=== PATIENT | female | born 1935 | race Caucasian/White ===

== ENCOUNTER 2020-12-29 10:53 | Inpatient (IN) | payer OTHER ==
[~2020-12-29] VITALS: Ht 149.9 cm; Wt 76.3 kg
--- NOTE | ~2020-12-29 | EEG ---
[address] [address] EEG STUDY REPORT Name: MITZY BRADLEY Room: [address] IN .R.#: [id number] Admission: 12/29/20 Attend Phys: Ankit Upton MD Discharge: Date of : 39 Report #: [id number] THIS REPORT FOR: cc: Mono Phillips MD, Todd A. MD Khosla,Gregg Cruz MD ~ DATE OF SERVICE: 12/31/2020 This patient is being evaluated for episode of syncope. EEG was done by placing the electrode by standard 10-20 system of electrode placement. Both referential and sequential montages were used for recording. Background activity in this patient's EEG is about 7-8 Hz and 30 microvolt. This patient became drowsy that is associated with bilateral slowing and vertex sharp waves. Photic stimulation is unremarkable. Throughout the record, no active epileptiform activity was noticed. IMPRESSION: This patient's EEG is poorly formed. That is a nonspecific abnormality, which can occur with dementia, encephalopathy, effect of psychotropic medication, etc. Clinical correlation is recommended. By: 1655 1707Gregg Medina MD /nt
--- NOTE | ~2020-12-29 | CON ---
[address] [address] CONSULTATION Name: MITZY BRADLEY Karmen Room: [address] IN .R.#: [id number] Admission: 12/29/20 Attend Phys: Ankit Upton MD Discharge: Date of : 39 Report #: [id number] THIS REPORT FOR: cc: Mono Phillips MD, Todd A. MD Khosla,Gregg Cruz MD ~ DATE OF CONSULTATION: 12/30/2020 HISTORY OF PRESENT ILLNESS: An 85-year-old female patient who was seen by me for an episode of syncope. She came with an episode of syncope, but appeared to be doing better. She is in assisted living for some time now. She used to live with her . When a few years ago, she lived independently, but her short-term memory was becoming poor and she is in assisted living now. She is better than she was yesterday. REVIEW OF SYSTEMS: Indicate that she does have a diagnosis of dementia, but she can still tell me the month and what hospital she is in. She has no overactive bladder, hypertension, history of depression. She was diagnosed to be in atrial fibrillation with rapid heart rate that is being addressed by Cardiology. That was a relevant 14-point review of systems. PAST MEDICAL HISTORY: Negative for any known atrial fibrillation or any stroke. FAMILY HISTORY: Unremarkable. SOCIAL HISTORY: She lives in assisted living. Niece says that she is the closest relative. PHYSICAL EXAMINATION: The patient's examination indicate she is alert. She can tell me that this is December. She could not tell me what date it is. She knew the hospital. She could not name the president. Speech looks intact. Cranial nerve examination II-XII was mostly unremarkable. She moves all 4 extremities symmetrically. Tone is symmetrical. Position sense is normal. Reflexes are somewhat diminished. She was hypertensive when she came in. There is no meningeal sign in this patient. There is no carotid bruit. There is no thyroid mass. She is obese. Her hearing and vision looks adequate. She does appear to be somewhat short of breath. She has atrial fibrillation. Pulses are difficult to feel. No edema, cyanosis or jaundice. VITAL SIGNS: Blood pressure is 123/64, respirations 17, pulse is 83, temperature is 98. LABORATORY DATA: White count is 13.6. IMPRESSION: I suspect the patient's symptoms were because of atrial fibrillation. I ordered the MRI to see if it showed any stroke. Atrial fibrillation and the question of antico[place] [address] CONSULTATION Name: ALEXUS BRADLEYVAUGHN Peraza Room: [address] IN [facility]#: [id number] Admission: 12/29/20 Attend Phys: Ankit Upton MD Discharge: Date of : 39 Report #: [id number] Cardiology and I will defer it to them. I will also get an EEG done, but main management is going to be by Cardiology. If it shows any abnormality on the workup, which I ordered, then I can address that. All of it was discussed with the patient and the niece who is her closest relative and they are agreeable with that. Thank you very much for this referral. By: 1416 1433Pnataliia Medina MD /nt
[2020-12-29 10:56] VITALS: BP 100/53
[2020-12-29] MEDS ORDERED: ASA81BEC PO (10:59)
[2020-12-29] MEDS ORDERED: BUMETANIDE0.5 MG PO (10:59)
[2020-12-29] MEDS ORDERED: VASOTEC20 MG PO (11:00)
[2020-12-29] MEDS ORDERED: ARICEPT10 M1 PO (11:00)
[2020-12-29] MEDS ORDERED: DITROPAN XL5 M1 PO (11:00)
[2020-12-29] MEDS ORDERED: CELEXA 10 MG TA10 M1 PO (11:00)
[2020-12-29] MEDS ORDERED: TRANDATE 200 M200 M1 PO (11:01)
[2020-12-29] MEDS ORDERED: OMEPRAZOLE 20 M20 M1 PO (11:01)
[2020-12-29] MEDS ORDERED: QUESTRAN PACKET4 GM PO (11:01)
[2020-12-29] MEDS ORDERED: NAMENDA 10 MG T10 MG PO (11:01)
[2020-12-29] MEDS ORDERED: TRAZODONE HCL50 MG PO (11:02)
[2020-12-29 11:17] LABS: ABSOLUTE EOSINOPHILS 0.9 thou/uL (0.0-0.7); ABSOLUTE LYMPHOCYTES 0.9 thou/uL (0.8-5.3); ABSOLUTE MONOCYTES 0.9 thou/uL (0.0-1.2); ABSOLUTE NEUTROPHILS 14.2 thou/uL (1.6-8.1); BASOPHILS 0.2 %; EOSINOPHILS 5.3 %; HEMATOCRIT 40.5 % (37.0-47.0); HEMOGLOBIN 12.9 gm/dL (12.0-15.0); LYMPHOCYTES 5.3 %; MCH 27.9 pg (26.0-34.0); MCHC 31.9 g/dL (28.0-37.0); MCV 87.5 fL (80.0-100.0); MONOCYTES 5.3 %; MPV 7.2 fl. (7.2-11.1); NUCLEATED RBCS 0 /100WBC; PLATELET COUNT* 295 thou/uL (150-400); POLYS 83.9 %; RBC 4.62 mil/uL (4.20-5.00); RDW-CV 15.5 % (10.5-14.5); WBC 16.9 thou/uL (4.0-11.0)
[2020-12-29 11:27] LABS: CALCIUM 8.4 mg/dL (8.5-10.1); CREATININE 1.5 mg/dL (0.6-1.3); POTASSIUM 3.9 mmol/L (3.5-5.1)
[2020-12-29 11:31] LABS: ALBUMIN 2.7 g/dL (3.4-5.0); TOTAL BILIRUBIN 0.5 mg/dL (<0.1-1.0); TOTAL PROTEIN 5.9 g/dL (6.4-8.2)
[2020-12-29 14:11] LABS: URINE BILIRUBIN NEGATIVE (Negative); URINE BLOOD NEGATIVE (Negative); URINE CLARITY CLEAR; URINE COLOR YELLOW; URINE GLUCOSE-RANDOM NEGATIVE (Negative); URINE KETONES NEGATIVE (Negative); URINE LEUKOCYTES-REFLEX NEGATIVE (Negative); URINE NITRITE-REFLEX NEGATIVE (Negative); URINE PROTEIN NEGATIVE (Negative); URINE UROBILINOGEN 0.2 E.U./dl (0.2-1.0)
--- NOTE | 2020-12-29 14:17 | NUR ---
PT'S EMERGENCY CONTACT, SAYDA BROWN, GIVEN UPDATE ON PLAN OF CARE.
[2020-12-29 16:06] VITALS: BP 127/72
--- NOTE | 2020-12-29 16:23 | EKG ---
[place] [address] ELECTROCARDIOGRAM REPORT Name: MITZY BRADLEY Room: [address] IN ..#: [id number] Admission: 12/29/20 Attend Phys: Ankit Upton, Discharge: Date of : 39 Date of Service: 12/29/20 1052 Report #: [id number] THIS REPORT FOR: //name// [facility] ED Test Date: 2020-12-29 Test Time: 10:52:36 Pat Name: MITZY BRADLEY Department: Room: [facility] Gender: F Desktop Analyst: DSSebas : 1935 Requested By: Aakash Steele Order Number: [id number] MD: Priyank Chang Measurements Intervals [place] Rate: 125 P: [place]: QRS: -26 QRSD: 126 T: 8 QT: 326 QTc: 471 Interpretive Statements Atrial fibrillation Right bundle branch block No previous ECG available for comparison Electronically Signed On 12-29-2020 16:23:18 CDT by Priyank Chang [email or web address] <ELECTRONICALLY SIGNED> By: Priyank Chang MD, [facility] 12/29/20 1623 1052 1052 Priyank Chang MD, [facility] /EPI
[2020-12-29 20:00] VITALS: BP 107/68
--- NOTE | 2020-12-29 20:37 | NUR ---
PT ARRIVED FROM THE ER TO BE ADMITTED WITH SYNCOPE EPISODE AND AFIBB. PT HAS A CARDIZEM INFUSION AT 5CC/HR. PT WAS VERY SLEEPY WHEN ARRIVED TO THE FLOOR THEN WOKE UP AND WAS ABLE TO TALK AND ANSWER QUESTIONS, LOOKING FORWARD TO BREAKFAST IN THE AM. WILL CONTINUE TO MONITOR PLAN OF CARE.
[2020-12-30 04:18] VITALS: BP 93/55
[2020-12-30 06:07] LABS: GLYCOHEMOGLOBIN (HGB A1C) 5.9 % (4.8-5.6)
[2020-12-30 08:00] VITALS: BP 97/50
[2020-12-30 08:48] LABS: ABSOLUTE BASOPHILS 0.1 thou/uL (0.0-0.2); ABSOLUTE EOSINOPHILS 1.3 thou/uL (0.0-0.7); ABSOLUTE LYMPHOCYTES 1.1 thou/uL (0.8-5.3); ABSOLUTE MONOCYTES 0.9 thou/uL (0.0-1.2); ABSOLUTE NEUTROPHILS 10.3 thou/uL (1.6-8.1); BASOPHILS 0.6 %; EOSINOPHILS 9.5 %; HEMATOCRIT 36.6 % (37.0-47.0); HEMOGLOBIN 11.8 gm/dL (12.0-15.0); LYMPHOCYTES 8.1 %; MCH 27.9 pg (26.0-34.0); MCHC 32.1 g/dL (28.0-37.0); MCV 86.8 fL (80.0-100.0); MONOCYTES 6.5 %; NUCLEATED RBCS 0 /100WBC; PLATELET COUNT* 317 thou/uL (150-400); POLYS 75.3 %; RBC 4.22 mil/uL (4.20-5.00); RDW-CV 15.4 % (10.5-14.5); WBC 13.6 thou/uL (4.0-11.0)
[2020-12-30 08:59] LABS: ALBUMIN 2.3 g/dL (3.4-5.0); CALCIUM 8.2 mg/dL (8.5-10.1); CREATININE 1.2 mg/dL (0.6-1.3); TOTAL BILIRUBIN 0.3 mg/dL (<0.1-1.0); TOTAL PROTEIN 5.4 g/dL (6.4-8.2)
--- NOTE | 2020-12-30 11:35 | 2DMMODE ---
[place] [address] 2 D/M-MODE ECHOCARDIOGRAM Name: MITZY BRADLEY Room: [address] IN [facility]#: [id number] Admission: 12/29/20 Attend Phys: Ankit Upton, Discharge: Date of : 39 Date of Service: 12/30/20 1135 Report #: [id number] THIS REPORT FOR: cc: Mono Phillips MD, Todd A. MD Holkins,Priyank Wilson MD [facility] ~ ADDENDUM APPROVED REPORT Study performed: 12/29/2020 15:25:38 EXAM: Comprehensive 2D, Doppler, and color-flow Echocardiogram Patient Location: In-Patient Room #: er Status: routine BSA: 1.79 HR: 100 bpm BP: 100/66 mmHg Rhythm: Atrial Fibrillation Other Information Study Quality: Good Indications CVA/TIA Atrial Fibrillation Echo Enhancing Agent Indication: Rule out Shunt Agent(s) / Amount(s) Used: Agitated Saline 10 cc 2D Dimensions IVSd: 10.94 (7-11mm) LVOT Diam: 17.79 (18-24mm) LVDd: 35.61 mm PWd: 9.67 (7-11mm) Ascending Ao: 30.68 (22-36mm) LVDs: 23.57 (25-40mm) Volumes Left Atrial Volume (Systole) LA ESV Index: 23.20 mL/m2 Aortic Valve AoV Peak Willard.: 1.29 m/s AO Peak Gr.: 6.68 mmHg LVOT Max P.05 mmHg AO Mean Gr.: 3.67 mmHg LVOT Mean P.57 [place] [address] 2 D/M-MODE ECHOCARDIOGRAM Name: MITZY BRADLEY Room: [address]#: [id number] Admission: 12/29/20 Attend Phys: Ankit Upton, Discharge: Date of : 39 Date of Service: 12/30/20 1135 Report #: [id number] LVOT Max V: 0.51 m/s AO V2 VTI: 22.24 cm LVOT Mean V: 0.35 m/s KELSEY (VTI): 0.90 cm2 LVOT V1 VTI: 8.05 cm Pulmonary Valve PV Peak Willard.: 0.77 m/s PV Peak Gr.: 2.39 mmHg Tricuspid Valve RAP Estimate: 5.00 mmHg TR Peak Gr.: 15.58 mmHg RVSP: 20.00 mmHg PA Pressure: 20.00 mmHg Left Ventricle The left ventricle is normal size. There is normal LV segmental wall motion. There is normal left ventricular wall thickness. Left ventricular systolic function is normal. LVEF is 60-65%. This study is not technically sufficient to allow evaluation of the LV diastolic function due to atrial fibrillation. Right Ventricle The right ventricle is normal size. The right ventricular systolic function is normal. Atria Left atrium is mildly dilated. The interatrial septum is intact with no evidence for shunting of the microcavitations on bubble study. The right atrium size is normal. Aortic Valve Moderate aortic valve sclerosis. No aortic regurgitation is present. There is no aortic valvular stenosis. Mitral Valve The mitral valve is normal in structure. Trace mitral regurgitation. No evidence of mitral valve stenosis. Tricuspid Valve The tricuspid valve is normal in structure. Trace tricuspid regurgitation. No pulmonary hypertension. Pulmonic Valve The pulmonary valve is normal in structure. Trace pulmonic regurgitation. Great Vessels The aortic root is normal in size. The inferior vena [place] [address] 2 D/M-MODE ECHOCARDIOGRAM Name: MITZY BRADLEY Karmen Room: [address]#: [id number] Admission: 12/29/20 Attend Phys: Ankit Upton, Discharge: Date of : 39 Date of Service: 12/30/20 1135 Report #: [id number] visualized. Pericardium There is no pericardial effusion. <Conclusion> The left ventricle is normal size. There is normal left ventricular wall thickness. Left ventricular systolic function is normal. LVEF is 60-65%. This study is not technically sufficient to allow evaluation of the LV diastolic function due to atrial fibrillation. Left atrium is mildly dilated. Moderate aortic valve sclerosis. Trace mitral regurgitation. Trace tricuspid regurgitation. No pulmonary hypertension. The interatrial septum is intact with no evidence for shunting of the microcavitations on bubble study. <ELECTRONICALLY SIGNED> By: Priyank Chang MD, FACC 12/30/20 1135 1135 1135 Priyank Chang MD, FACC /INF
[2020-12-30 11:58] VITALS: BP 123/64
--- NOTE | 2020-12-30 14:28 | NUR ---
CM spoke with Pt's niece/DPOA via phone. Pt resides at [facility]. Pt is independent with mobility, Pt does use a wc for longer distances. No o2. Pt on 2L, does not wear oxygen at baseline. Cards and neuro consulted. Therapy evals pending. Per more, Pt fainted at [facility].
[2020-12-30 20:00] VITALS: BP 136/65
[2020-12-31 01:53] VITALS: BP 137/60
[2020-12-31 05:26] VITALS: BP 112/57
[2020-12-31 09:00] VITALS: BP 119/71
[2020-12-31 16:04] VITALS: BP 135/77
[2020-12-31 20:00] VITALS: BP 130/86
[2021-01-01] VITALS: BP 122/64
[2021-01-01 04:00] VITALS: BP 127/73
[2021-01-01 09:00] VITALS: BP 150/84
[2021-01-01 11:30] VITALS: BP 119/63
[2021-01-01 16:02] VITALS: BP 133/80
[2021-01-01 20:00] VITALS: BP 144/66
[2021-01-02 01:43] VITALS: BP 101/61
[2021-01-02 06:02] VITALS: BP 109/68
[2021-01-02 09:00] VITALS: BP 138/83
[2021-01-02] MEDS ORDERED: LOPRESSOR100 M1 PO (09:31)
[2021-01-02] MEDS ORDERED: CEFDINIR300 MG PO (09:31)
[2021-01-02] MEDS ORDERED: LANOXIN125 MCG PO (09:31)
[2021-01-02 12:00] VITALS: BP 140/86
--- NOTE | 2021-01-02 15:37 | NUR ---
Pt will need SNF prior to dc back to [facility]. Cm spoke with Pt's niece, niece in agreement with POC. Faxed SNF referral to [facility], await insurance auth. Therapies to see. Pt medically stable to dc once auth received.
[2021-01-02 16:00] VITALS: BP 119/71
[2021-01-02 20:30] VITALS: BP 128/61
[2021-01-03] VITALS: BP 111/59
[2021-01-03 04:00] VITALS: BP 160/95
--- NOTE | 2021-01-03 07:25 | NUR ---
CHANGE OF SHIFT REPORT GIVEN PATIENT SEEN AT BEDSIDE, IN BED RESTING ASSUMED PATIENT CARE
[2021-01-03 08:00] VITALS: BP 140/95
[2021-01-03 12:05] VITALS: BP 134/60
--- NOTE | 2021-01-03 15:18 | NUR ---
Pt discharging to [facility]. Faxed dc orders. Chart copied. Nurse report number is [id number]. Updated Pt's niece. Facility to [facility]er between [phone]
--- NOTE | 2021-01-03 16:35 | NUR ---
patient discharged to snf, [facility] iv and heart monitor removed personal belongings returned dc instructiona and chart copy sent patient transported via [facility] by van
== END 2021-01-03 16:35 | DRG 177 ==
LOC: M.ERS 10:53 → M.2W 11:55 → M.TBA-ER 11:55 → M.2W 16:15
PROVIDERS: Emergency Medicine Emergency Medical Services; ADMIT Internal Medicine; ATTEND Internal Medicine
DX: J69.0 Pneumonitis due to inhalation of food and vomit (principal); G92 Toxic encephalopathy; N17.0 Acute kidney failure with tubular necrosis; E87.2 Acidosis; N39.0 Urinary tract infection, site not specified; I48.91 Unspecified atrial fibrillation; F32.9 Major depressive disorder, single episode, unspecified; K21.9 Gastro-esophageal reflux disease without esophagitis; I10 Essential (primary) hypertension; F03.90 Unspecified dementia, unspecified severity, without behavioral disturbance, psychotic disturbance, mood disturbance, and anxiety; Z20.822 Contact with and (suspected) exposure to COVID-19; Z79.82 Long term (current) use of aspirin; Z79.899 Other long term (current) drug therapy

== ENCOUNTER 2021-04-21 08:26 | Emergency (ER) | payer OTHER ==
[~2021-04-21] VITALS: Ht 162.6 cm; Wt 65.5 kg
[~2021-04-21 08:26] MED LIST: ARICEPT10 M1 PO; ASA81BEC PO; BUMETANIDE0.5 MG PO; CEFDINIR300 MG PO; CELEXA 10 MG TA10 M1 PO; DITROPAN XL5 M1 PO; LANOXIN125 MCG PO; LOPRESSOR100 M1 PO; NAMENDA 10 MG T10 MG PO; OMEPRAZOLE 20 M20 M1 PO; QUESTRAN PACKET4 GM PO; TRANDATE 200 M200 M1 PO; TRAZODONE HCL50 MG PO; VASOTEC20 MG PO
[2021-04-21 11:52] VITALS: BP 0/0
== END 2021-04-21 11:52 ==
LOC: M.ERS 08:26
DX: I46.9 Cardiac arrest, cause unspecified (principal); Z20.822 Contact with and (suspected) exposure to COVID-19; R73.9 Hyperglycemia, unspecified